=== PATIENT | female | born 1995 | race Caucasian/White ===

== ENCOUNTER 2016-05-19 13:37 | Emergency (ER) | payer BC, MEDICAID ==
[2016-05-19 14:22] VITALS: TEMP 97.9; BMI 38.4
[2016-05-19 15:37] VITALS: BP 140/76; PULSE 88
[2016-05-19] MEDS ORDERED: PREDNISONE 20 MG TAB PO ONE (15:55)
[2016-05-19] MEDS ORDERED: RANITIDINE 150 MG TAB PO ONE (15:55)
--- NOTE | 2016-05-19 15:57 | EDPRACDOC ---
- General Information Chief Complaint: Skin Rash (not drug induced) Stated Complaint: ALLERGIC REACTION & RIGHT WRIST PAIN Time Seen by Provider: 05/19/16 15:47 Information Source: Patient Home Medications: Home Medications Vits W-Ca,Fe,FA(<1Mg) [] 1 tab PO DAILY 08/15/13 Acetaminophen [Tylenol Extra Strength] 1,000 mg PO Q4-6H PRN 12/09/14 Hydrocodone Bit/Acetaminophen [Hydrocodon-Acetaminophen 5-325] 1 - 2 tab PO Q4H PRN #30 tab 12/10/14 Ibuprofen Tablet [Motrin] 800 mg PO TID #30 tab 12/10/14 HydrOXYzine HCl (Antihistamine [Atarax] 25 - 50 mg PO Q6 PRN #30 tab 05/19/16 Prednisone [Sterapred Ds] 10 mg PO DIR #21 pack 05/19/16 Ranitidine HCl [Zantac] 300 mg PO TID #30 tablet 05/19/16 Allergies/Adverse Reactions: Allergies Allergy/AdvReac Type Severity Reaction Status Date / Time Sulfa (Sulfonamide Allergy Rash-Genera Verified 05/19/16 14:22 Antibiotics) lized BENADRYL Allergy Mild Hives* Uncoded 05/19/16 14:22 - History of Present Illness Onset: THIS AM HPI: RASH TO BILATERAL UPPER NAD LOWER EXT THAT HAS BEEN SPREADING FOR 2 DAYS. PT STATES RASH DOES ITCH AND URNING. Rash Location: Reports: Generalized Quality: Reports: Pruritic, Red Relevant History of: Reports: None Irritability: Mild Pain Severity: None Associated Signs and Symptoms: Reports: None ED Past Medical History - History Reviewed Yes Nurses notes reviewed and agree except as marked Travel Outside of [place] in the Last 3 Months?: No No Past Medical History: Yes Patient has no past medical history - Patient Medical History Psychological History: Denies: Depression, Substance Use Disorder Systemic History: Denies: Cancer Surgical History: Denies: Hysterectomy - Family Medical History Reports: Hypertension (MOTHER), Diabetes (MGM). Denies: Cancer, Stroke, Cardiac Disorders - Social Medical History Smoking Status: Never smoker Social History: Denies: Amphetamine Use, Barbiturate Use, Benzodiazipine Use, Cocaine Use, Heroin Use, Marijuana Use, Methadone Use, MDMA (Ecstasy) Use, Substance Use Disorder ETOH: None Substance Abuse: None Lives With: Other Lives In: Home EDM Review of Systems - Review of Systems ROS Negative Except as Marked: Yes All systems reviewed and were negative except as marked Constitutional: No Symptoms Reported. negative: Fever, Chills, Weakness, Fatigue, Loss of Appetite Eyes: No Symptoms Reported. negative: Redness, Blurred Vision, Double Vision, Discharge, Pain, Light Sensitive, Photophobia Ears: No Symptoms Reported. negative: Pain, Hearing Loss, Drainage, Ear Pulling Throat: No Symptoms Reported. negative: Pain, Swelling Nose: No Symptoms Reported. negative: Congestion, Bleeding, Discharge, Injection, Swelling, Deformity, Ecchymosis, Tender, Abrasion, Laceration Mouth: No Symptoms Reported. negative: Pain, Drooling Respiratory: No Symptoms Reported. negative: Cough, Brassy Cough, Barky Cough, Shortness of Breath, Wheezing, Hemoptysis Cardiovascular: No Symptoms Reported. negative: Chest Pain, Palpitations, Syncope, Edema, Orthopnea, PND, Skin Mottling, Cyanosis Gastrointestinal: No Symptoms Reported. negative: Pain, Constipation, Nausea, Vomiting, Diarrhea, Melena, Formula Intolerance Genitourinary: No Symptoms Reported. negative: Dysuria, Hematuria, Frequency, Discharge, Bleeding, Testicular Pain, Neurological: No Symptoms Reported. negative: Headache, Dizziness, Seizure, Numbness, Weakness, Speech Difficulty, Gait Difficulty Musculoskeletal: No Symptoms Reported. negative: Neck, Chestwall, Ribs, Back, Shoulder, Arm, Elbow, Forearm, Wrist, Hand, Pelvis, Hip, Femur, Knee, Leg, Ankle , Foot Integumentary: Itching, Rash. negative: Bruising, Wound Allergic/Immunologic: No Symptoms Reported. negative: Hives, Itching Hematologic: No Symptoms Reported. negative: Lymphadenopathy, Easy Bruising, Easy Bleeding Endocrine: No Symptoms Reported. negative: Weight Gain, Weight Loss Psychiatric: No Symptoms Reported. negative: Anxiety, Depression, Hallucinations, Insomnia, Suicidal - Physical Exam Constitutional: Alert (Awake), No apparent distress Oriented to: Time, Person, Place Last recorded Vital Signs: Last Vital Signs Temp 97.9 F 05/19/16 14:16 Pulse 88 05/19/16 15:35 Resp 20 05/19/16 15:35 BP 140/76 05/19/16 15:35 Pulse Ox 98 05/19/16 15:35 Oxygen Pulse Oxygen Saturation 98 O2 Device Room Air Oxygen Flow Rate Fraction of Inspired Oxygen ( FIO2) - HEENT Head: Normal ( normocephalic) Eye Exam: Normal (PERRL, EOMI, Sclera white) Oropharynx: Normal (Pharynx:Moist without exudate,Gums-no swelling) Tympanic Membrane: Normal ENT EAC: Normal TMJ: Normal Nose: No Symptoms Reported (septum midline) Neck: Normal (FROM, trachea at midline) - Respiratory/Cardiovascular Respiratory: Normal - CTA (BBS clear to auscultation without adventitious sounds ) Cardiovascular: Normal (RRR without murmur, gallop or rub) - GI Auscultation: Normal (NABS) Palpation: Normal (Soft,No rebound or guarding, non distended) Tenderness: Non tender Bran's Sign: Negative - Musculoskeletal Back: Normal (Non-Tender) Extremities: Normal (Normal tone, Pulses 2+ No cyanosis or edema, FROM) - Integumentary Skin: Normal, Warm, Dry, Rash (RED BLANCHING RASH TO BILATERAL UPPER AND LOWER EXT AND ON BACK.) Lymphatics: Normal (no adenopathy) - Neurologic Memory Impaired: Normal Motor Function: Normal (Normal tone, Pulses 2+ No cyanosis or edema, FROM) Cranial Nerve: Normal (CN II-X11 intact sensation, strength 5/5) Cerebellar: Normal Mood Description: Normal Perception: Normal - Differential Diagnosis Contact dermatitis, Urticaria Decision Time to Discharge: 15:57 - Departure Disposition: Home Condition: Stable Final Diagnosis: Urticaria Instructions: Urticaria (ED) Education/Counseling Given To: Patient Education/Counseling Given Regarding: Diagnosis, Treatment, Prognosis, Follow Up Referrals: None,No Provider [Primary Care Provider] - One Week Phillip Lopez MD [Staff Physician] - One Week Prescriptions: HydrOXYzine HCl (Antihistamine [Atarax] 25 - 50 mg PO Q6 PRN #30 tab PRN Reason: Itching Prednisone [Sterapred Ds] 10 mg PO DIR #21 pack Ranitidine HCl [Zantac] 300 mg PO TID #30 tablet Additional Instructions: RETURN FOR WORSE OR DIFFERENT SYMPTOMS.
== END 2016-05-19 16:22 | disposition home or self-care (01) ==
LOC: ED 13:37 → EDMC 16:22
DX: L50.9 Urticaria, unspecified (principal)
CPT/HCPCS: 99282; J3490